=== PATIENT | male | born 1990 | race Caucasian/White ===

== ENCOUNTER 2021-05-14 07:54 | Day surgery (SDC) | payer BC, OTHER ==
[2021-05-13 14:27] VITALS: BMI 25.7
[2021-05-14] MEDS ORDERED: PROPOFOL 20 ML ONE (10:54)
[2021-05-14] MEDS ORDERED: MIDAZOLAM HCL 2 MG/2 ML SINGLE DOSE VIAL ONE (11:36)
[2021-05-14] MEDS ORDERED: LIDOCAINE HCL 1%, 10 MG/ML (50 mL VIAL) NR ONE (11:40)
[2021-05-14] MEDS ORDERED: BUPIVACAINE HCL/PF 0.5% (5 MG/ML) 30 ML VIAL IJ ONE (11:40)
[2021-05-14] MEDS ORDERED: ceFAZolin SODIUM 1 GM VIAL IVPB ONE (11:45)
[2021-05-14 12:37] VITALS: TEMP 97.4
[2021-05-14 14:09] VITALS: BP 130/80; PULSE 65
== END 2021-05-14 13:30 | disposition home or self-care (01) ==
LOC: JASU-SURG 07:54
PROVIDERS: ATTEND Surgery
PROC: 0JBM0ZZ Excision of Left Upper Leg Subcutaneous Tissue and Fascia, Open Approach (ICD-10-PCS; principal; 2021-05-14 11:30)
DX: D17.39 Benign lipomatous neoplasm of skin and subcutaneous tissue of other sites (principal)
CPT/HCPCS: 88304-TC